=== PATIENT | male | born 1990 | race Caucasian/White ===

== ENCOUNTER 2019-06-15 15:38 | Emergency (ER) | payer MEDICAID, OTHER ==
[~2019-06-15] VITALS: Ht 198.1 cm; Wt 88.5 kg
[~2019-06-15 15:38] MED LIST: ARIP15TA2 PO; DIVA-78 PO; LITH600 PO; OXCA300T29 PO; PRAZ1 PO
[2019-06-15 15:59] VITALS: BP 120/66
[2019-06-15] MEDS ORDERED: ACID1CAP2 PO (16:12)
[2019-06-15] MEDS ORDERED: CLIN300C3 PO (16:12)
[2019-06-15] MEDS ORDERED: LIB25 PO (16:12)
== END 2019-06-15 17:54 | disposition left against medical advice (07) ==
LOC: EMS 15:40
DX: Z02.89 Encounter for other administrative examinations (principal); F41.9 Anxiety disorder, unspecified; F20.9 Schizophrenia, unspecified; F17.210 Nicotine dependence, cigarettes, uncomplicated; F19.90 Other psychoactive substance use, unspecified, uncomplicated; Z53.21 Procedure and treatment not carried out due to patient leaving prior to being seen by health care provider